=== PATIENT | male | born 1985 | race Caucasian/White ===

== ENCOUNTER 2018-10-27 13:25 | Emergency (ER) | payer BC, OTHER ==
--- NOTE | 2018-10-27 14:36 | RAD REPORT ---
EXAM DESCRIPTION: US - Abdomen Exam Limited - 10/27/2018 2:11 pm CLINICAL HISTORY: Abdominal pain. COMPARISON: None. FINDINGS: Ultrasound of the spleen was performed. The spleen has a homogeneous echotexture. Evaluation of the entire spleen is somewhat limited seconda ry to artifact from adjacent ribs. No gross abnormality is seen. IMPRESSION: Grossly normal splenic ultrasound
--- NOTE | 2018-10-27 14:37 | RAD REPORT ---
EXAM DESCRIPTION: Adri Casas And Balbir (2 Views)10/27/2018 2:02 pm CLINICAL HISTORY: Cough COMPARISON: None FINDINGS: The lungs appear clear of acute infiltrate. The heart is normal size IMPRESSION: No acute abnormalities displayed Refer to the rib x-ray series for rib findings.
--- NOTE | 2018-10-27 14:38 | RAD REPORT ---
EXAM DESCRIPTION: RAD - Ribs Left - 10/27/2018 2:02 pm CLINICAL HISTORY: Left rib pain FINDINGS: Mildly displaced fractures involve the seventh through ninth left anterolateral ribs. A pneumothorax is not seen.
[2018-10-27] MEDS ORDERED: KETOROLAC 30 MG/ML INJ ONE (15:32)
--- NOTE | 2018-10-27 15:47 | RAD REPORT ---
EXAM DESCRIPTION: CT - Abdomen Wo Contrast - 10/27/2018 3:32 pm CLINICAL HISTORY: Fall with left-sided chest trauma, left chest wall pain, left upper abdominal demetri n COMPARISON: None. TECHNIQUE: Axial [address] imaging of the abdomen was performed. No IV contrast was adm inistered. No oral contrast. All CT scans are performed using dose optimization technique as appropriate and may include automated exposure control or mA/KV adjustment according to patient size. FINDINGS: Lung base findings are detailed in separate CT chest report. The left ninth rib is fractur ed at the costochondral junction as well as in the lateral aspect. The seventh and eighth ribs are fr actured near the costochondral junction. No displacement. Spleen is normal. The liver, gallbladder, biliary tree and pancreas show no suspicious findings. No hydronephrosis or suspicious renal mass. Isodense masses and pyelonephritis are not excluded on a non IV contrast study. No evidence for traumatic injury to the kidney.No adrenal abnormality. No dilated bowel loops or bowel wall thickening. No free air, free fluid or inflammatory stranding. N o hernia, mass or bulky lymphadenopathy. Exam sensitivity is decreased when no IV contrast is administered. IMPRESSION: Nondisplaced fractures of the seventh- ninth ribs as detailed. No pneumothorax, pulmona ry contusion or hemothorax. No splenic injury. No acute finding in the abdomen.
--- NOTE | 2018-10-27 15:49 | RAD REPORT ---
EXAM DESCRIPTION: CT - Thorax Wo Con - 10/27/2018 3:33 pm CLINICAL HISTORY: Fall, left-sided chest trauma, left-sided chest pain COMPARISON: None. TECHNIQUE: Axial 5 mm thick images of the chest were obtained without IV contrast. All CT scans are performed using dose optimization technique as appropriate and may include automated exposure control or mA/KV adjustment according to patient size. FINDINGS: No pulmonary contusion or acute lung parenchymal process. No pneumothorax or hemothorax. No abnormal mediastinal or hilar masses or lymphadenopathy seen. No gross aortic or pulmonary artery finding suspected. Assessment is limited in the absence of IV contrast. No pericardial effusion. No chest wall mass or abnormal axillary lymphadenopathy. The left seventh- ninth ribs are fractured near the costochondral junction without displacement. Ther e is also fracture of the ninth rib at the lateral aspect without displacement. IMPRESSION: Fractures of the left seventh- ninth ribs present near the costochondral junction with a dditional fracture of the lateral left ninth rib. No displacement. No pneumothorax, hemothorax or pulmonary contusion.
--- NOTE | 2018-10-27 15:55 | EKG ---
Test Date: 2018-10-27 Test Time: 14:15:00 Branch Library Clerk: ROB MEASUREMENT RESULTS: Intervals: Rate: 91 OK: 174 QRSD: 84 QT: 322 QTc: 396 [place]: P: 47 OK: 174 QRS: 32 T: 45 INTERPRETIVE STATEMENTS: Normal sinus rhythm Normal ECG No previous ECG available for comparison Electronically Signed On 10-27-18 15:54:48 CDT by Geronimo Wiseman
--- NOTE | 2018-10-27 16:14 | EDPHYS ---
Physician Documentation [facility] Name: Sree Tijerina Age: 33 yrs Sex: Male : 1985 Arrival Date: 10/27/2018 Time: 13:29 Bed 6 Private MD: ED Physician Raymond Ledezma HPI: 10/27 13:57 This 33 yrs old Male presents to ER via Ambulatory with complaints of Rib snw Pain. 13:57 The patient or guardian reports chest pain that is located primarily in the left snw lateral anterior chest. Onset: The symptoms/episode began/occurred suddenly, yesterday, and became worse today, and became persistent. The pain does not radiate. Associated signs and symptoms: The patient has no apparent associated signs or symptoms. The chest pain is described as sharp. Duration: The patient or guardian reports multiple episodes. Severity of pain: At its worst the pain was moderate severe. EMS care prior to arrival includes: n/a. The patient has not experienced similar symptoms in the past. The patient has not recently seen a physician. slipped in wet grass and landed on nearby ice-chest to left lateral chest wall . Historical: - Allergies: 13:40 SHELLFISH; ss 13:40 Iodine; ss - PMHx: 13:52 None; ch - PSHx: 13:52 None; ch - Immunization history:: Adult Immunizations up to date. - Social history:: Smoking status: Patient uses tobacco products, chewing tobacco. - Ebola Screening: : Patient denies exposure to infectious person Patient denies travel to an Ebola-affected area in the 21 days before illness onset. ROS: 13:57 Constitutional: Negative for fever, chills, and weight loss, Eyes: Negative for injury, snw pain, redness, and discharge, ENT: Negative for injury, pain, and discharge, Neck: Negative for injury, pain, and swelling, Cardiovascular: Negative for chest pain, palpitations, and edema, Chest wall, rib pain to left Respiratory: Negative for shortness of breath, cough, wheezing, and pleuritic chest pain, Abdomen/GI: Negative for abdominal pain, nausea, vomiting, diarrhea, and constipation, Back: Negative for injury and pain, : Negative for injury, bleeding, discharge, and swelling, MS/Extremity: Negative for injury and deformity, Skin: Negative for injury, rash, and discoloration, Neuro: Negative for headache, weakness, numbness, tingling, and seizure. Exam: 13:55 Constitutional: This is a well developed, well nourished patient who is awake, alert, snw and in no acute distress. Head/Face: Normocephalic, atraumatic. Eyes: Pupils equal round and reactive to light, extra-ocular motions intact. Lids and lashes normal. Conjunctiva and sclera are non-icteric and not injected. Cornea within normal limits. Periorbital areas with no swelling, redness, or edema. ENT: Nares patent. No nasal discharge, no septal abnormalities noted. Tympanic membranes are normal and external auditory canals are clear. Oropharynx with no redness, swelling, or masses, exudates, or evidence of obstruction, uvula midline. Mucous membranes moist. Neck: Trachea midline, no thyromegaly or masses palpated, and no cervical lymphadenopathy. Supple, full range of motion without nuchal rigidity, or vertebral point tenderness. No Meningismus. Chest/axilla: Normal chest wall appearance and motion. tender with no deformity. no crepitus No lesions are appreciated. + contusion/tender area with abrasion over lateral 8-9 rib margin Cardiovascular: Tachycardic rate and rhythm with a normal S1 and S2. No gallops, murmurs, or rubs. Normal PMI, no JVD. No pulse deficits. Respiratory: Lungs have equal breath sounds bilaterally, clear to auscultation and percussion. No rales, rhonchi or wheezes noted. No increased work of breathing, no retractions or nasal flaring. Abdomen/GI: Soft, non-tender, with normal bowel sounds. No distension or tympany. No guarding or rebound. No evidence of tenderness throughout. Back: No spinal tenderness. No costovertebral tenderness. Full range of motion. Skin: Warm, dry with normal turgor. Normal color with no rashes, no lesions, and no evidence of cellulitis. MS/ Extremity: Pulses equal, no cyanosis. Neurovascular intact. Full, normal range of motion. Neuro: Awake and alert, GCS 15, oriented to person, place, time, and situation. Cranial nerves II-XII grossly intact. Motor strength 5/5 in all extremities. Sensory grossly intact. Cerebellar exam normal. Normal gait. Psych: Awake, alert, with orientation to person, place and time. Behavior, mood, and affect are within normal limits. Vital Signs: 13:40 BP 141 / 91; Pulse 101; Resp 17; Temp 97.9(O); Pulse Ox 96% on R/A; Pain 6/10; ss 14:51 BP 136 / 93; Pulse 97; Resp 18; Pulse Ox 96% on R/A; sv MDM: 13:50 Patient medically screened. snw 15:16 Data reviewed: vital signs, nurses notes. Data interpreted: Pulse oximetry: on room air snw is 96 %. Interpretation: acceptable. Counseling: I had a detailed discussion with the patient and/or guardian regarding: the historical points, exam findings, and any diagnostic results supporting the discharge/admit diagnosis, radiology results, the need for outpatient follow up, to return to the emergency department if symptoms worsen or persist or if there are any questions or concerns that arise at home. Physician consultation: Chaz Bentley MD was called at 15:00, was contacted at 15:00, regarding consult, outpatient follow-up, next week, would like further tests performed, CT scan. 16:09 Special discussion: I have referred the patient to see his PCP for further evaluation snw of high blood pressure. Based on the history and exam findings, there is no indication for further emergent testing or inpatient evaluation. I discussed with the patient/guardian the need to see the general surgeon for further evaluation of the symptoms. I discussed with the patient/guardian the need to see the primary care provider for further evaluation of the symptoms. 10/27 13:40 Order name: Chest Pa And Lat (2 Views) XRAY; Complete Time: 14:45 sv 10/27 13:40 Order name: Ribs Left XRAY; Complete Time: 14:45 sv 10/27 13:55 Order name: INCENTIVE SPIROMETRY snw 10/27 13:55 Order name: US Abdomen Limited; Complete Time: 14:45 snw 10/27 15:12 Order name: RC INCENTIVE SPIROMETRY EDMS 10/27 14:46 Order name: EKG Electrocardiogram; Complete Time: 14:49 EDMS 10/27 15:12 Order name: CT Chest Wo Con; Complete Time: 15:58 snw 10/27 15:27 Order name: Abdomen Wo Contrast; Complete Time: 15:58 EDMS Administered Medications: 15:21 Drug: TORadol 30 mg Route: IM; Site: right deltoid; sv 16:08 Follow up: Response: No adverse reaction sv Disposition: 10/28 06:52 Co-signature as Attending Physician, Raymond Ledezma MD I agree with the assessment and kdr plan of care. Disposition: 10/27/18 16:13 Discharged to Home. Impression: Multiple fractures of ribs, left side, Fall on same level from slipping, tripping and stumbling with subsequent striking against unspecified object. - Condition is Stable. - Discharge Instructions: Rib Contusion, Fall Prevention in the Home, Rib Fracture, Incentive Spirometer. - Prescriptions for Mobic 7.5 mg Oral Tablet - take 1 tablet by ORAL route once daily take with food; 20 tablet. Tylenol- Codeine #3 300-30 mg Oral Tablet - take 2 tablet by ORAL route every 6 hours As needed; 30 tablet. - Work release form, Medication Reconciliation Form, Thank You Letter, Antibiotic Education, Prescription Opioid Use form. - Follow up: Chaz Bentley MD; When: 5 - 6 days; Reason: Recheck today's complaints, Continuance of care. Follow up: Emergency Department; When: As needed; Reason: Trouble breathing, Worsening of condition. Signatures: Dispatcher [employer] [facility] Eun Mendenhall, RN Mackenzie Keene ch, RN RN sv Rittger, Kevin, MD MD [facility] Tonya Muniz, HOUSE SHORER-C HOUSE SHORER-Csnw Deanne Sanchez RN RN ss Corrections: (The following items were deleted from the chart) 10/27 14:06 14:02 Ribs Left+RAD.RAD.BRZ ordered. [facility] EDUT 16:28 16:13 10/27/2018 16:13 Discharged to Home. Impression: Multiple fractures of ribs, left sv side; Fall on same level from slipping, tripping and stumbling with subsequent striking against unspecified object. Condition is Stable. Forms are Medication Reconciliation Form, Thank You Letter, Antibiotic Education, Prescription Opioid Use. Follow up: Chaz Bentley; When: 5 - 6 days; Reason: Recheck today's complaints, Continuance of care. Follow up: Emergency Department; When: As needed; Reason: Trouble breathing, Worsening of condition. snw
--- NOTE | 2018-10-27 16:14 | ER ---
Nurse's Notes [facility] Name: Sree Tijerina Age: 33 yrs Sex: Male : 1985 Arrival Date: 10/27/2018 Time: 13:29 Bed 6 Private MD: Diagnosis: Multiple fractures of ribs, left side;Fall on same level from slipping, tripping and stumbling with subsequent striking against unspecified object Presentation: 10/27 13:34 Presenting complaint: Patient states: Pain to L lateral chest wall that occurred ss yesterday after falling onto an ice chest. Reports pain increased with deep breathing. abrasion and bruising noted to affected area. Transition of care: patient was not received from another setting of care. Onset of symptoms was October 26, 2018. Risk Assessment: Do you want to hurt yourself or someone else? Patient reports no desire to harm self or others. Initial Sepsis Screen: Does the patient meet any 2 criteria? No. Patient's initial sepsis screen is negative. Does the patient have a suspected source of infection? No. Patient's initial sepsis screen is negative. Care prior to arrival: None. 13:34 Method Of Arrival: Ambulatory ss 13:34 Acuity: ELIAS 3 ss Historical: - Allergies: 13:40 SHELLFISH; ss 13:40 Iodine; ss - PMHx: 13:52 None; ch - PSHx: 13:52 None; ch - Immunization history:: Adult Immunizations up to date. - Social history:: Smoking status: Patient uses tobacco products, chewing tobacco. - Ebola Screening: : Patient denies exposure to infectious person Patient denies travel to an Ebola-affected area in the 21 days before illness onset. Screenin:35 Abuse screen: Denies threats or abuse. Denies injuries from another. Nutritional sv screening: No deficits noted. Tuberculosis screening: No symptoms or risk factors identified. Fall Risk None identified. Assessment: 13:35 General: Appears in no apparent distress. uncomfortable, well groomed, well developed, sv Behavior is calm, cooperative, appropriate for age. Pain: Complains of pain in chest and left lateral anterior chest Pain currently is 6 out of 10 on a pain scale. Quality of pain is described as sharp, Is intermittent, chronic, Aggravated by deep breathing. Neuro: Level of Consciousness is awake, alert, obeys commands, Oriented to person, place, time, situation, Moves all extremities. Full function Gait is steady. Respiratory: Airway is patent Respiratory effort is even, unlabored, Respiratory pattern is regular, symmetrical. Derm: Skin is pink, warm \T\ dry. Bruising that is dark purple, yellow, on left lateral anterior chest. 15:20 Reassessment: Patient appears in no apparent distress at this time. No changes from sv previously documented assessment. Patient and/or family updated on plan of care and expected duration. Pain level reassessed. Patient is alert, oriented x 3, equal unlabored respirations, skin warm/dry/pink. 16:26 Reassessment: Patient appears in no apparent distress at this time. No changes from sv previously documented assessment. Patient and/or family updated on plan of care and expected duration. Pain level reassessed. Patient is alert, oriented x 3, equal unlabored respirations, skin warm/dry/pink. Vital Signs: 13:40 BP 141 / 91; Pulse 101; Resp 17; Temp 97.9(O); Pulse Ox 96% on R/A; Pain 6/10; ss 14:51 BP 136 / 93; Pulse 97; Resp 18; Pulse Ox 96% on R/A; sv ED Course: 13:29 Patient arrived in ED. as 13:32 Mackenzie Walters, ELVIRA is Primary Nurse. sv 13:35 Patient has correct armband on for positive identification. Bed in low position. Call sv light in reach. Pulse ox on. NIBP on. Door closed. Head of bed elevated. 13:40 Triage completed. ss 13:40 Arm band placed on right wrist. ss 13:45 Tonya Muniz FNP-C is PHCP. snw 13:45 Raymond Ledezma MD is Attending Physician. snw 13:59 X-ray completed. Patient tolerated procedure well. Patient moved to radiology via mh1 wheelchair. Patient moved back from radiology. 14:02 Chest Pa And Lat (2 Views) XRAY In Process Unspecified. EDMS 14:02 Ribs Left XRAY In Process Unspecified. EDMS 14:11 US Abdomen Limited In Process Unspecified. EDMS 14:15 EKG done, by technical editor. reviewed by Tonya SENIOR. at1 14:52 Awaiting re-evaluation by ER provider. sv 15:02 INCENTIVE SPIROMETRY Sent. sv 15:16 RC INCENTIVE SPIROMETRY Sent. sv 15:33 CT Chest Wo Con In Process Unspecified. EDMS 15:33 Abdomen Wo Contrast In Process Unspecified. EDMS 16:11 Chaz Bentley MD is Referral Physician. snw 16:27 No provider procedures requiring assistance completed. Patient did not have IV access sv during this emergency room visit. Administered Medications: 15:21 Drug: TORadol 30 mg Route: IM; Site: right deltoid; sv 16:08 Follow up: Response: No adverse reaction sv Outcome: 16:13 Discharge ordered by MD. snw 16:27 Discharged to home ambulatory. sv 16:27 Condition: stable 16:27 Discharge instructions given to patient, Instructed on discharge instructions, follow up and referral plans. no drinking with medication, no driving heavy equipment, medication usage, incentive spirometry Demonstrated understanding of instructions, follow-up care, medications, Prescriptions given X 2. 16:28 Patient left the ED. sv Signatures: Dispatcher [employer] EDWA Eun Mendenhall, RN RN Mackenzie Walters RN RN Tonya Muniz, CHUCK TENDER-C CHUCK TENDER-Csnw Bianca Hughes mh1 Maria Isabel Ulloa Shelby, ELVIRA EFLIX Khadijah Bourgeois, top frame fitter EKG Tat1
== END 2018-10-27 16:28 | disposition home or self-care (01) ==
LOC: ER 13:25
DX: S22.42XA Multiple fractures of ribs, left side, initial encounter for closed fracture (principal); W01.10XA Fall on same level from slipping, tripping and stumbling with subsequent striking against unspecified object, initial encounter; Y93.01 Activity, walking, marching and hiking; Y92.9 Unspecified place or not applicable; Z72.0 Tobacco use; Z91.013 Allergy to seafood; Z91.048 Other nonmedicinal substance allergy status
CPT/HCPCS: 71046; 71250; 74150; 76705; 93005; 96372; 99284

== ENCOUNTER 2021-01-12 10:47 | Emergency (ER) | payer BC ==
--- NOTE | 2021-01-12 12:06 | RAD REPORT ---
EXAM DESCRIPTION: CT - Ct Stroke Brain Wo Cont - 01/12/2021 11:56 am CLINICAL HISTORY: TIA/numbness COMPARISON: none TECHNIQUE: Computed axial tomography of the head was obtained. All CT scans are performed using dose optimization technique as appropriate and may include automated exposure control or mA/KV adjustment according to patient size. FINDINGS: An intracranial bleed is not seen . The ventricles are normal in caliber. No extra-axial fluid collection is noted. Fluid within the sinuses/ mastoids is not seen. Mucus retention cyst left maxillary sinus 2 IMPRESSION: No acute intracranial abnormality is seen. If patient's symptoms persist MRI of the bra in would be recommended. Teodoro of the emergency room was notified at 12:01 p.m. January 12, 2021
[2021-01-12 12:35] LABS: Absolute Lymphocytes (CBC) 1.7 K/uL (0.7-4.9); Basophils % 0.3 % (0-1.3); Hematocrit 49.5 % (39.6-49.0); Lymphocytes % 21.1 % (15.3-44.8); MPV 8.1 fL (7.6-11.3); RBC Red Blood Cell Count 5.53 M/uL (4.33-5.43)
[2021-01-12 12:40] LABS: Protime INR 1.02
[2021-01-12] MEDS ORDERED: FOLIC ACID 5 MG/ML VIAL ONE (12:49)
--- NOTE | 2021-01-12 12:49 | RAD REPORT ---
EXAM DESCRIPTION: Adri Single View01/12/2021 12:03 pm CLINICAL HISTORY: Cough COMPARISON: 2017 FINDINGS: The lungs appear clear of acute infiltrate. The heart is normal size IMPRESSION: No acute abnormalities displayed
[2021-01-12] MEDS ORDERED: NA CHLORIDE 0.9% 1,000 ML ONE (12:50)
[2021-01-12 12:55] LABS: ALT/SGPT 56 U/L (12-78); AST/SGOT 28 U/L (15-37); Albumin 4.1 g/dL (3.4-5.0); Alkaline Phosphatase 72 U/L (45-117); BUN Blood Urea Nitrogen 16 mg/dL (7-18); Bicarbonate 31 mmol/L (21-32); Bilirubin Direct 0.3 mg/dL (0-0.2); Bilirubin Total 1.2 mg/dL (0.2-1.0); Glucose Level 93 mg/dL (74-106); Magnesium 2.2 mg/dL (1.8-2.4); NT PRO-BNP 7 pg/mL (<125); Potassium 4.3 mmol/L (3.5-5.1); Protein, Total 7.7 g/dL (6.4-8.2); Sodium Level 139 mmol/L (136-145); Troponin (Emerg Dept Use Only) < 0.02 ng/mL (0.0-0.045)
--- NOTE | 2021-01-12 13:04 | ER ---
Nurse's Notes [facility] Name: Sree Tijerina Age: 35 yrs Sex: Male : 1985 Arrival Date: 01/12/2021 Time: 10:51 Bed 2 Private MD: Diagnosis: Radiculopathy, cervical region;Paresthesia of skin-right face;Pain in right shoulder Presentation: 01/12 11:30 Chief complaint: Patient states: right arm has been bothering him , woke up this iw morning at 9 and had a really sharp pain in right shoulder and his right side of face went numb, still has a little tingling, started at around 9:45 , no facial droop noted, but states the right side of his mouth was harder to open this morning. Coronavirus screen: At this time, the client does not indicate any symptoms associated with coronavirus-19. Ebola Screen: Patient negative for fever greater than or equal to 101.5 degrees Fahrenheit, and additional compatible Ebola Virus Disease symptoms Patient denies exposure to infectious person. Patient denies travel to an Ebola-affected area in the 21 days before illness onset. No symptoms or risks identified at this time. Initial Sepsis Screen: Does the patient meet any 2 criteria? No. Patient's initial sepsis screen is negative. Does the patient have a suspected source of infection? No. Patient's initial sepsis screen is negative. Risk Assessment: Do you want to hurt yourself or someone else? Patient reports no desire to harm self or others. Onset of symptoms was January 12, 2021. 11:30 Method Of Arrival: Ambulatory iw 11:30 Acuity: ELIAS 3 iw Historical: - Allergies: 11:33 Iodine; iw 11:33 SHELLFISH; iw - Home Meds: 11:33 None [Active]; iw - PMHx: 11:33 None; iw - PSHx: 11:33 None; iw - Immunization history:: Client reports having NOT received the Covid vaccine. - Social history:: Smoking status: Patient reports use of chewing tobacco. - Family history:: not pertinent. Screenin:23 Abuse screen: Denies threats or abuse. Denies injuries from another. Nutritional zb screening: No deficits noted. Tuberculosis screening: No symptoms or risk factors identified. Fall Risk None identified. Assessment: 12:20 General: Appears in no apparent distress. comfortable, Behavior is calm, cooperative. zb Pain: Complains of pain in right arm Pain does not radiate. Pain currently is 3 out of 10 on a pain scale. Quality of pain is described as aching, dull, sharp. Neuro: Level of Consciousness is awake, alert, obeys commands, Oriented to person, place, time, situation, Residential Green Building Designer are equal bilaterally Moves all extremities. Full function Speech is normal, Facial symmetry appears normal, Pupils are PERRLA, Tingling in right facial area. Neuro: Reports numbness in right facial area since This morning Denies weakness blurred vision dizziness, headache diplopia. Cardiovascular: Heart tones S1 S2 present Patient's skin is warm and dry. Respiratory: Airway is patent Respiratory effort is even, unlabored, Respiratory pattern is regular, symmetrical. Derm: Skin is intact, is healthy with good turgor, Skin is dry, Skin is normal. Musculoskeletal: Range of motion: intact in all extremities, limited in all extremities. 13:31 Reassessment: Patient appears in no apparent distress at this time. Patient and/or zb family updated on plan of care and expected duration. Pain level reassessed. Patient is alert, oriented x 3, equal unlabored respirations, skin warm/dry/pink. d/c instructions given. patient ambulated out with . Vital Signs: 11:30 BP 134 / 103; Pulse 80; Resp 16; Temp 98.2; Pulse Ox 98% on R/A; Weight 86.18 kg; iw Height 5 ft. 6 in. (167.64 cm); 12:35 BP 122 / 81; Pulse 78; Resp 18; Pulse Ox 99% on R/A; zb 11:30 Body Mass Index 30.67 (86.18 kg, 167.64 cm) iw NIH Stroke Scale Scores: 12:58 NIHSS Score: 0 kimberly ED Course: 10:51 Patient arrived in ED. ds1 11:33 Triage completed. iw 11:33 Arm band placed on. iw 11:41 Luis Felipe Kidd MD is Attending Physician. [place] 11:55 CT Stroke Brain w/o Contrast In Process Unspecified. EDMS 12:03 XRAY Chest (1 view) In Process Unspecified. EDMS 12:13 Elenita Katz, RN is Primary Nurse. kg 12:16 Primary Nurse role handed off by Elenita Katz, RN zb 12:16 Renee Wright, LEVIRA is Primary Nurse. zb 12:23 Patient has correct armband on for positive identification. phototypesetting equipment monitor on. Pulse zb ox on. NIBP on. Door closed. Noise minimized. 12:25 Patient has correct armband on for positive identification. Bed in low position. Call 5 light in reach. Side rails up X 1. Adult w/ patient. Pillow given. phototypesetting equipment monitor on. Pulse ox on. NIBP on. 12:26 EKG done, by ED staff, reviewed by Luis Felipe Kidd MD. [facility] 12:35 Inserted saline lock: 20 gauge in right antecubital area, using aseptic technique. zb Blood collected. 13:03 Sher Barrientos MD is Referral Physician. kimberly 13:03 Graeme Davenport MD is Referral Physician. kimberly Administered Medications: 12:35 Drug: foLIC Acid 1 mg Route: IVPB; Site: right antecubital; zb 13:15 Follow up: Response: No adverse reaction; IV Status: Completed infusion; IV Intake: zb 0.2ml 12:35 Drug: NS 0.9% 1000 ml Route: IV; Rate: 1 bolus; Site: right antecubital; zb 13:30 Follow up: Response: No adverse reaction; IV Status: Completed infusion; IV Intake: zb 1000ml 13:15 Drug: Aspirin Chewable Tablet 324 mg Route: PO; zb 13:30 Follow up: Response: Medication administered at discharge. zb Intake: 13:15 IV: 0ml; Total: 0ml. zb 13:30 IV: 1000ml; Total: 1000ml. zb Outcome: 13:03 Discharge ordered by . kimberly 13:32 Patient left the ED. zb NIH Stroke Scale - NIH Stroke Score Date: 01/12/2021 Time: 12:58 Total Score = 0 1a. Level of Consciousness (LOC) - 0(Alert) 1b. Level of Consciousness (LOC) (Month \T\ Age) - 0(Both) 1c. LOC Commands (Open \T\ Closes Eyes/Beverage Inspection Machine Tender) - 0(Both) 2. Best Gaze (Lateral Gaze Paresis) - 0(Normal) 3. Visual Field Loss - 0(No visual loss) 4. Facial Palsy - 0(Normal) 5a. Left Arm: Motor (10-second hold) - 0(No drift) 5b. Right Arm: Motor (10-second hold) - 0(No drift) 6a. Left Leg: Motor (5-second hold - always test supine) - 0(No drift) 6b. Right Leg: Motor (5-second hold - always test supine) - 0(No drift) 7. Limb Ataxia (finger/nose \T\ heel/fung - test with eyes open) - 0(Absent) 8. Sensory Loss (pinprick arms/legs/face) - 0(Normal) 9. Best Language: Aphasia (description/naming/reading) - 0(No aphasia) 10. Dysarthria (speech clarity - read or repeat words) - 0(Normal) 11. Extinction and Inattention (visual/tactile/auditory/spatial/personal) - 0(No abnormality) Initials: kimberly Signatures: Dispatcher [employer] Luis Felipe Cohen MD MD cha Sanford, Demi ds1 Adalgisa Obrien RN RN iw Martinez, Maria 5 Renee Wright RN RN zb Graham, Kristen, RN RN kg Corrections: (The following items were deleted from the chart) 13:15 13:15 Response: No adverse reaction; IV Intake: 0.2ml zb zb 13:31 12:35 Pulse 78bpm; Resp 18bpm; Pulse Ox 99% RA; zb zb
--- NOTE | 2021-01-12 13:04 | EDPHYS ---
Physician Documentation [facility] Name: Sree Tijerina Age: 35 yrs Sex: Male : 1985 Arrival Date: 01/12/2021 Time: 10:51 Bed 2 Private MD: ED Physician Luis Felipe Kidd HPI: 01/12 12:58 This 35 yrs old Male presents to ER via Ambulatory with complaints of Arm kimberly Pain - R, Facial Numbness. 12:58 The patient or guardian complains of pain, that is acute, right face felt numb, no kimberly weakness. The complaints affect the posterior aspect of right shoulder. Context: The problem was sustained at home. Onset: The symptoms/episode began/occurred this morning. Treatment prior to arrival includes: no previous treatment. Modifying factors: The symptoms are alleviated by nothing. the symptoms are aggravated by nothing. Associated signs and symptoms: The patient has no apparent associated signs or symptoms. Severity of symptoms: At their worst the symptoms were mild, in the emergency department the symptoms have resolved. The patient has not experienced similar symptoms in the past. Historical: - Allergies: 11:33 Iodine; iw 11:33 SHELLFISH; iw - Home Meds: 11:33 None [Active]; iw - PMHx: 11:33 None; iw - PSHx: 11:33 None; iw - Immunization history:: Client reports having NOT received the Covid vaccine. - Social history:: Smoking status: Patient reports use of chewing tobacco. - Family history:: not pertinent. ROS: 12:58 Constitutional: Negative for fever, chills, and weight loss, Eyes: Negative for injury, kimberly pain, redness, and discharge, ENT: Negative for injury, pain, and discharge, Neck: Negative for injury, pain, and swelling, Cardiovascular: Negative for chest pain, palpitations, and edema, Respiratory: Negative for shortness of breath, cough, wheezing, and pleuritic chest pain, Abdomen/GI: Negative for abdominal pain, nausea, vomiting, diarrhea, and constipation, Back: Negative for injury and pain, : Negative for injury, bleeding, discharge, and swelling, Skin: Negative for injury, rash, and discoloration, Neuro: Negative for headache, weakness, numbness, tingling, and seizure, Psych: Negative for depression, anxiety, suicide ideation, homicidal ideation, and hallucinations, Allergy/Immunology: Negative for hives, rash, and allergies, Endocrine: Negative for neck swelling, polydipsia, polyuria, polyphagia, and marked weight changes, Hematologic/Lymphatic: Negative for swollen nodes, abnormal bleeding, and unusual bruising. 12:58 MS/extremity: Positive for decreased range of motion, pain, of the anterior aspect of right shoulder and posterior aspect of right shoulder. Exam: 12:58 Constitutional: This is a well developed, well nourished patient who is awake, alert, kimberly and in no acute distress. Head/Face: Normocephalic, atraumatic. Eyes: Pupils equal round and reactive to light, extra-ocular motions intact. Lids and lashes normal. Conjunctiva and sclera are non-icteric and not injected. Cornea within normal limits. Periorbital areas with no swelling, redness, or edema. ENT: Nares patent. No nasal discharge, no septal abnormalities noted. Tympanic membranes are normal and external auditory canals are clear. Oropharynx with no redness, swelling, or masses, exudates, or evidence of obstruction, uvula midline. Mucous membranes moist. Neck: Trachea midline, no thyromegaly or masses palpated, and no cervical lymphadenopathy. Supple, full range of motion without nuchal rigidity, or vertebral point tenderness. No Meningismus. Chest/axilla: Normal chest wall appearance and motion. Nontender with no deformity. No lesions are appreciated. Cardiovascular: Regular rate and rhythm with a normal S1 and S2. No gallops, murmurs, or rubs. Normal PMI, no JVD. No pulse deficits. Respiratory: Lungs have equal breath sounds bilaterally, clear to auscultation and percussion. No rales, rhonchi or wheezes noted. No increased work of breathing, no retractions or nasal flaring. Abdomen/GI: Soft, non-tender, with normal bowel sounds. No distension or tympany. No guarding or rebound. No evidence of tenderness throughout. Back: No spinal tenderness. No costovertebral tenderness. Full range of motion. Skin: Warm, dry with normal turgor. Normal color with no rashes, no lesions, and no evidence of cellulitis. MS/ Extremity: Pulses equal, no cyanosis. Neurovascular intact. Full, normal range of motion. Neuro: Awake and alert, GCS 15, oriented to person, place, time, and situation. Cranial nerves II-XII grossly intact. Motor strength 5/5 in all extremities. Sensory grossly intact. Cerebellar exam normal. Normal gait. Psych: Awake, alert, with orientation to person, place and time. Behavior, mood, and affect are within normal limits. 13:04 ECG was reviewed by the Attending Physician. [facility] Vital Signs: 11:30 BP 134 / 103; Pulse 80; Resp 16; Temp 98.2; Pulse Ox 98% on R/A; Weight 86.18 kg; iw Height 5 ft. 6 in. (167.64 cm); 12:35 BP 122 / 81; Pulse 78; Resp 18; Pulse Ox 99% on R/A; zb 11:30 Body Mass Index 30.67 (86.18 kg, 167.64 cm) iw NIH Stroke Scale Scores: 12:58 NIHSS Score: 0 kimberly MDM: 11:42 Patient medically screened. [facility] 13:01 Differential diagnosis: contusion, tendonitis. Data reviewed: vital signs, nurses [facility] notes, lab test result(s), EKG, radiologic studies, CT scan, plain films. Data interpreted: teletypesetter monitor: rate is 78 beats/min, rhythm is regular, Pulse oximetry: on room air is 78 %. Test interpretation: by ED physician or midlevel provider: ECG, plain radiologic studies. Counseling: I had a detailed discussion with the patient and/or guardian regarding: the historical points, exam findings, and any diagnostic results supporting the discharge/admit diagnosis, the need for outpatient follow up, for definitive care, a family practitioner, a neurologist. 01/12 11:43 Order name: Basic Metabolic Panel; Complete Time: 13:20 [facility] 01/12 11:43 Order name: CBC with Diff; Complete Time: 13:20 [facility] 01/12 11:43 Order name: LFT's; Complete Time: 13:20 [facility] 01/12 11:43 Order name: Magnesium; Complete Time: 13:20 [facility] 01/12 11:43 Order name: NT PRO-BNP; Complete Time: 13:20 [facility] 01/12 11:43 Order name: PT-INR; Complete Time: 13:20 [facility] 01/12 11:43 Order name: Troponin (emerg Dept Use Only); Complete Time: 13:20 [facility] 01/12 11:43 Order name: XRAY Chest (1 view); Complete Time: 13:20 [facility] 01/12 11:43 Order name: CT Stroke Brain w/o Contrast; Complete Time: 13:20 [facility] 01/12 12:51 Order name: CRP kimberly 01/12 12:51 Order name: Sed Rate 01/12 13:12 Order name: CBC Smear Scan; Complete Time: 13:20 EDMS 01/12 11:43 Order name: EKG; Complete Time: 11:43 [facility] 01/12 11:43 Order name: Cardiac monitoring; Complete Time: 12:24 [facility] 01/12 11:43 Order name: EKG - Nurse/Tech; Complete Time: 12:24 [facility] 01/12 11:43 Order name: IV Saline Lock; Complete Time: 12:35 [facility] 01/12 11:43 Order name: Labs collected and sent; Complete Time: 12:35 [facility] 01/12 11:43 Order name: O2 Per Protocol; Complete Time: 12:24 [facility] 01/12 11:43 Order name: O2 Sat Monitoring; Complete Time: 12:24 [facility] EC:04 Rate is 70 beats/min. Rhythm is regular. QRS Lejunior is Normal. ID interval is normal. QRS kimberly interval is normal. QT interval is normal. No Q waves. T waves are Normal. No ST changes noted. Clinical impression: NSR w/ Non-specific ST/T Changes and No evidence of ischemia. Interpreted by me. Reviewed by me. Administered Medications: 12:35 Drug: foLIC Acid 1 mg Route: IVPB; Site: right antecubital; zb 13:15 Follow up: Response: No adverse reaction; IV Status: Completed infusion; IV Intake: zb 0.2ml 12:35 Drug: NS 0.9% 1000 ml Route: IV; Rate: 1 bolus; Site: right antecubital; zb 13:30 Follow up: Response: No adverse reaction; IV Status: Completed infusion; IV Intake: zb 1000ml 13:15 Drug: Aspirin Chewable Tablet 324 mg Route: PO; zb 13:30 Follow up: Response: Medication administered at discharge. zb Disposition Summary: 01/12/21 13:03 Discharge Ordered Location: Home kimberly Problem: new kimberly Symptoms: have improved kimberly Condition: Stable kimberly Diagnosis - Radiculopathy, cervical region kimberly - Paresthesia of skin - right face kimberly - Pain in right shoulder kimberly Followup: kimberly - With: Private Physician - When: 2 - 3 days - Reason: Recheck today's complaints, Continuance of care, Re-evaluation by your physician Followup: kimberly - With: Sher Barrientos MD - When: 2 - 3 days - Reason: Recheck today's complaints, Continuance of care, Re-evaluation by your physician Followup: kimberly - With: Graeme Davenport MD - When: 2 - 3 days - Reason: Recheck today's complaints, Continuance of care, Re-evaluation by your physician Discharge Instructions: - Discharge Summary Sheet kimberly - Joint Pain kimberly - Cervical Radiculopathy kimberly - Paresthesia kimberly - Shoulder Pain kimberly - Shoulder Pain, [id number] kimberly - Aspirin and Your Heart kimberly - Radicular Pain kimberly Forms: - Medication Reconciliation Form kimberly - Thank You Letter kimberly - Antibiotic Education kimberly - Prescription Opioid Use kimberly Prescriptions: - Folic Acid 1 mg Oral Tablet - take 1 tablet by ORAL route once daily; 30 tablet; Refills: 0, Product kimberly Selection Permitted NIH Stroke Scale - NIH Stroke Score Date: 01/12/2021 Time: 12:58 Total Score = 0 1a. Level of Consciousness (LOC) - 0(Alert) 1b. Level of Consciousness (LOC) (Month \T\ Age) - 0(Both) 1c. LOC Commands (Open \T\ Closes Eyes/Wire Spooler) - 0(Both) 2. Best Gaze (Lateral Gaze Paresis) - 0(Normal) 3. Visual Field Loss - 0(No visual loss) 4. Facial Palsy - 0(Normal) 5a. Left Arm: Motor (10-second hold) - 0(No drift) 5b. Right Arm: Motor (10-second hold) - 0(No drift) 6a. Left Leg: Motor (5-second hold - always test supine) - 0(No drift) 6b. Right Leg: Motor (5-second hold - always test supine) - 0(No drift) 7. Limb Ataxia (finger/nose \T\ heel/fung - test with eyes open) - 0(Absent) 8. Sensory Loss (pinprick arms/legs/face) - 0(Normal) 9. Best Language: Aphasia (description/naming/reading) - 0(No aphasia) 10. Dysarthria (speech clarity - read or repeat words) - 0(Normal) 11. Extinction and Inattention (visual/tactile/auditory/spatial/personal) - 0(No abnormality) Initials: kimberly Signatures: Dispatcher [employer] Luis Felipe Cohen, Adalgisa Vargas MD, cha, RN RN iw Brown, Zipporah, RN RN zb
[2021-01-12 13:13] LABS: Blood Morphology Comment NOT SEEN (NOT SEEN); Platelet Estimate ADEQ; White Blood Cell Scan OK (OK)
[2021-01-12] MEDS ORDERED: ASPIRIN 81 MG CHEWABLE TABLET ONE (13:36)
[2021-01-12 13:39] VITALS: TEMP 98.2
[2021-01-12 13:40] VITALS: BP 122/81; O2SAT 99
== END 2021-01-12 13:32 | disposition home or self-care (01) ==
LOC: ER 10:47
DX: M54.12 Radiculopathy, cervical region (principal); M25.511 Pain in right shoulder; F17.220 Nicotine dependence, chewing tobacco, uncomplicated; Z91.013 Allergy to seafood; Z91.048 Other nonmedicinal substance allergy status
CPT/HCPCS: 96365; 93005; 85025; 80048; 36415; 83735; 85610; 80076; 85652; 84484; 83880; 86140; 70450; 71045; 99284; J7030